=== PATIENT | male | born 1950 | race Asian ===

== ENCOUNTER 2024-07-07 11:56 | Inpatient (IN) | payer MEDICAID, OTHER ==
[~2024-07-07] VITALS: Ht 170.2 cm; Wt 77.0 kg
--- NOTE | 2024-07-07 12:06 | ED.PDOC ---
GI ASSESSMENT HPI Comments 74 Y M LUIS ALBERTO, presents to the ED with CC of abdominal pain. Per EMS, patient has been experiencing abdominal pain x4days with constipation [id number]; with associated symptoms of nausea and vomiting. Patient was given 1g of Tylenol and 4g of Zofran in route to ED with no relief. Patient smokes tobacco, denies ETOH consumption, or illicit drug use. Patient denies fever, chills, body aches, or headache. Chief Complaint: Abdominal Pain Time Seen by MD: 11:50 Reviewed Notes: Nurses Notes, Tennis [employer] Instructor Notes, Medications, Allergies Allergies: Coded Allergies: NO KNOWN ALLERGIES (Unverified , 07/07/24) Information Source: Patient, Emergency Med Personnel Mode of Arrival: EMS Duration: Since onset Prehospital treatment: Other (TYLENOL, ZOFRAN) Quality: Cramping Vomitus: Watery Stool: Watery Severity: Mild Recent Hx of: None Pain Location: Suprapubic Modifying Factors: Nothing Associated sign and symptoms: Nausea, Vomiting Past Medical History PAST MEDICAL HISTORY: Denies Surgical History: Denies all surgeries Family History Family History: Unknown Social History Smoker: Cigarettes Alcohol: Denies ETOH Use Drugs: Denies Drug Use Lives In: Home Constitutional: denies: chills, diaphoresis, fatigue, fever, malaise, sweats, weakness, others EENTM: denies: blurred vision, double vision, ear bleeding, ear discharge, ear drainage, ear pain, ear ringing, eye pain, eye redness, hearing loss, mouth pain, mouth swelling, nasal discharge, nose bleeding, nose congestion, nose pain, photophobia, tearing, throat pain, throat swelling, voice changes, others Respiratory: denies: cough, hemoptysis, orthopnea, SOB at rest, shortness of breath, SOB with excertion, stridor, wheezing, others Cardiovascular: denies: chest pain, dizzy spells, diaphoresis, Dyspnea on exertion, edema, irregular heart beat, left arm pain, lightheadedness, palpitations, PND, syncope, others Gastrointestinal: reports: abdominal pain, constipated, nausea, vomiting; denies: abdomen distended, blood streaked bowels, diarrhea, dysphagia, difficulty swallowing, hematemesis, melena, poor appetite, poor fluid intake, rectal bleeding, rectal pain, others Genitourinary: denies: burning, dysuria, flank pain, frequency, hematuria, incontinence, penile discharge, penile sore, pain, testicle pain, testicle swelling, urgency, others Neurological: denies: dizziness, fainting, headache, left sided numbness, left sided weakness, numbness, paresthesia, pre-existing deficit, right sided numbness, right sided weakness, seizure, speech problems, tingling, tremors, weakness, others Musculoskeletal: denies: back pain, gout, joint pain, joint swelling, muscle pain, muscle stiffness, neck pain, others Integumetry: denies: bruises, change in color, change in hair/nails, dryness, laceration, lesions, lumps, rash, wounds, others Allergic/Immunocompromised: denies: Difficulty Healing, Frequent Infections, Hives, Itching, others Hematologic/Lymphatic: denies: anemia, blood clots, easy bleeding, easy bruising, swollen glands, others Endocrine: denies: excessive hunger, excessive sweating, excessive thirst, excessive urination, flushing, intolerance to cold, intolerance to heat, unexplained weight gain, unexplained weight loss, others Psychiatric: denies: anxiety, bipolar disorder, depression, hopeless, panic disorder, schizophrenia, sleepless, suicidal, others All Other Systems: Reviewed and Negative Physical Exam General Appearance: Moderate Distress HEENT: Normal ENT Inspection, Pharynx Normal, TMs Normal Neck: Full Range of Motion, Non-Tender, Normal, Normal Inspection Respiratory: Chest Non-Tender, Lungs Clear, No Accessory Muscle Use, No Respiratory Distress, Normal Breath Sounds Cardiovascular: No Edema, No JVD, No Murmur, No Gallop, Normal Peripheral Pulses, Regular Rate/Rhythm Breast Exam: Deferred Gastrointestinal: Epigastric, No Organomegaly, Normal Bowel Sounds, Soft, Tenderness, Other (The patient has a pulsatile mass) Genitalia: Deferred Pelvic: Deferred Rectal: Deferred Extremities: No calf tenderness, Normal capillary refill, No pedal edema Musculoskeletal : Apperance: Normal Neurologic: Alert, nibbler operator II-XII nml as Tested, No Motor Deficits, Normal Affect, Normal Mood, No Sensory Deficits Cerebellar Function: Normal Reflexes: Normal Skin: Dry, Normal Color, Warm Lymphatic: No Adenopathy EKG EKG : Pulse Rate (adult): 76 Richardson: Normal Cardiac Rhythm: NSR ST: Nonsp Was a procedure done? Was a procedure done?: No GI differential Dx Differential Diagnosis: Bowel Obstruction, Constipation, Gastritis/PUD, Gastroenteritis, Electrolyte Imbalance, Food Poisoning, Bacterial, Viral X-Ray, Labs, Meds, VS Vital Signs Date Time Temp Pulse Resp B/P (MAP) Pulse Ox O2 Delivery O2 Flow Rate FiO2 07/07/24 15:30 76 17 162/98 (119) 95 07/07/24 15:29 83 18 166/83 07/07/24 13:48 88 18 164/96 07/07/24 13:34 162/98 (119) 07/07/24 13:20 89 20 166/113 07/07/24 13:16 98.0 13 166/113 (130) 97 98.0 07/07/24 12:10 89 16 167/108 (127) 98 07/07/24 12:08 92 07/07/24 11:59 98.1 88 18 183/105 (131) 98 Lab Test 07/07/24 15:00 07/07/24 12:19 Range/Units Urine Color Yellow Yellow Urine Clarity Clear Clear Urine pH 6.0 5.0-9.0 Urine Specific [place] 1.028 1.001-1.035 Urine Protein 1+ H Negative Urine Ketones 2+ H Negative Urine Blood 2+ H Negative /uL Urine Nitrite Negative Negative Urine Bilirubin Negative Negative Urine Urobilinogen 4 H Negative mg/dL Urine Leukocyte Esterase Negative Negative /uL Urine RBC 11 0 - 3 /hpf Urine WBC 1 0 - 3 /hpf Urine Squamous Epithelial Cells Few <5 /hpf Urine Bacteria None seen None Seen /hpf Urine Mucus Few None Seen Urine Glucose 2+ H Normal mg/dL White Blood Count 12.4 H 4.4-10.8 10^3/uL Red Blood Count 4.79 4.5-5.90 10^6/uL Hemoglobin 14.6 13.5-17.5 g/dL Hematocrit 43.7 41.0-53.0 % Mean Corpuscular Volume 91.4 80.0-100.0 fL Mean Corpuscular Hemoglobin 30.5 28.0-32.0 pg Mean Corpuscular Hemoglobin Concent 33.4 32.0-36.0 g/dL Red Cell Distribution Width 14.7 H 11.8-14.3 % Platelet Count 270 140-450 10^3/uL Mean Platelet Volume 8.9 6.9-10.8 fL Neutrophils (%) (Auto) 89.8 H 37.0-80.0 % Lymphocytes (%) (Auto) 6.5 L 10.0-50.0 % Monocytes (%) (Auto) 3.4 0.0-12.0 % Eosinophils (%) (Auto) 0.0 0.0-7.0 % Basophils (%) (Auto) 0.3 0.0-2.0 % Neutrophils # (Auto) 11.1 H 1.6-8.6 10 ^3/uL Lymphocytes # (Auto) 0.8 0.4-5.4 10 ^3/uL Monocytes # (Auto) 0.4 0-1.3 10 ^3/uL Eosinophils # (Auto) 0 0-0.8 10 ^3/uL Basophils # (Auto) 0 0-0.2 10 ^3/uL Nucleated Red Blood Cells 0.1 % Prothrombin Time 10.6 9.3-11.8 sec Prothrombin Time INR 1.00 0.9-1.15 Activated Partial Thromboplast Time 28.9 24.5-34.5 SEC Sodium Level 134 L 136-145 mmol/L Potassium Level 3.9 3.5-5.1 mmol/L Chloride Level 102 98-107 mmol/L Carbon Dioxide Level 25 20-31 mmol/L Anion Gap 7 5-15 Blood Urea Nitrogen 13 9-23 mg/dL Creatinine 1.11 0.700-1.30 mg/dL Glomerular Filtration Rate Calc 71 >90 mL/min BUN/Creatinine Ratio 11.7 10.0-20.0 Serum Glucose 165 H 74-106 mg/dL Calcium Level 9.3 8.7-10.4 mg/dL Total Bilirubin 1.0 0.2-1.0 mg/dL Aspartate Amino Transferase (AST) 15 13-40 U/L Alanine Aminotransferase (ALT) < 9 7-40 U/L Alkaline Phosphatase 91 46-116 U/L Total Protein 7.5 5.7-8.2 g/dL Albumin 4.1 3.2-4.8 g/dL Current Medications Medications (Trade) Dose Ordered Sig/David Route Start Time Stop Time Status Last Admin Morphine Sulfate 4 mg ONCE ONCE IV 07/07/24 13:15 07/07/24 13:16 DC 07/07/24 13:20 Ondansetron HCl (Zofran) 4 mg ONCE ONCE IV 07/07/24 13:15 07/07/24 13:16 DC 07/07/24 13:20 Hydromorphone HCl (Dilaudid Injection) 0.5 mg ONCE ONCE IV 07/07/24 15:15 07/07/24 15:16 DC 07/07/24 15:29 Ondansetron HCl (Zofran) 4 mg ONCE ONCE IV 07/07/24 15:15 07/07/24 15:16 DC 07/07/24 15:[address]: T Dose: CTDI volume is 5.82 mGy. Dose-length product is 326.08 mGy*cm Comparison: None FINDINGS: Evaluation of the abdomen and pelvis is limited without intravenous contrast. There is marked aneurysmal dilatation of the infrarenal abdominal aorta measuring 7.0 x 7.7 cm in maximum diameter. The IVC appears within normal limits. 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 The liver, gallbladder, pancreas, kidneys, adrenal glands, and spleen appear within normal limits. There is no free fluid or free air. The stomach grossly appears unremarkable. The small and large bowel loops demonstrate normal caliber. There is mild prostatomegaly. Bladder appears within normal limits for the degree of distention.. There is no gross evidence of a pelvic mass. There is no free fluid collection. Lung bases are clear. There is no acute osseous abnormality. IMPRESSION: 1. Marked aneurysmal dilatation of the infrarenal abdominal aorta measuring 7.0 x 7.7 cm maximum diameter. Surgical consultation and further evaluation with CT angiography is recommended. 2. Mild prostatomegaly. HS:Y ATED BY: GARCÍA WYMAN MD DICTATED DATE/TIME: 07/07/241239 SIGNED BY: GARCÍA WYMAN MD SIGNED DATE/TIME: 07/07/241239 CC: Because of the findings on the CT scan we did contact the vascular surgeon and he will be consulting on this patient. The patient will be evaluated by him. The patient was being admitted to the hospitalist We have given the patient morphine for the pain as well as Dilaudid for the pain. The patient has been typed and screened. The white blood cell count is elevated at 12.4 The rest of the CBC and chemistry panel are within normal limits At this time, the patient was being admitted. The urine test is negative for infection We are getting an per diem interpreter for the patient who speaks Syriac. The vascular surgeon is Dr. Refugio Robledo Images Reviewed?: Images reviewed and evaluated by me Time of 1ST Reevaluation: 12:20 Reevaluation 1ST: Unchanged Patient Education/Counseling: Diagnosis, Treatment, Prognosis Family Education/Counseling: No Family Present Departure 1 Departure Time of Disposition: 16:02 Impression: Primary Impression: Intractable abdominal pain Additional Impression: Infrarenal abdominal aortic aneurysm (AAA) without rupture Disposition: 09 ADMITTED INPATIENT Admit to: Tele Condition: Fair Critical Care Note Critical Care Time?: Yes (45 min-critical care time only) Stability Stability form required: Yes Unstable for transfer: Telemetry monitoring (Telemetry monitoring required), ED Physician Assesment (Clinical assesment) Heart Score Heart Score: Heart Score Response (Comments) Value History N/A 0 EKG N/A 0 Age N/A 0 Risk Factors N/A 0 Troponin N/A 0 Total 0 I personally scribed for KASH FALCON MD ([email or web address]) on 07/07/24 at 12:06. Electronically submitted by Evelia Santos ([email or web address]). I personally scribed for KASH FALCON MD ([email or web address]) on 07/07/24 at 13:19. Electronically submitted by Evelia Santos ([email or web address]). KASH FALCON MD Jul 07, 2024 12:06
--- NOTE | 2024-07-07 12:42 | DVH ---
CT ABDOMEN AND PELVIS WITHOUT CONTRAST CLINICAL HISTORY: PAIN TECHNIQUE: Multiple contiguous axial images of the abdomen and pelvis without intravenous contrast. The images were reformatted degenerate coronal and sagittal reconstructions. All CT scans at this medical facility are performed using dose modulation techniques as appropriate t o a performed exam including the following:Automated exposure control was utilized; adjustment of the MA and/or KV according to patient size; and use of iterative reconstruction technique. Radiation Dose Information: CT Dose: CTDI volume is 5.82 mGy. Dose-length product is 326.08 mGy*cm Comparison: None FINDINGS: Evaluation of the abdomen and pelvis is limited without intravenous contrast. There is marked aneurysmal dilatation of the infrarenal abdominal aorta measuring 7.0 x 7.7 cm in max imum diameter. The IVC appears within normal limits. There is also aneurysmal dilatation of the proxi mal common iliac arteries. The liver, gallbladder, pancreas, kidneys, adrenal glands, and spleen appear within normal limits. There is no free fluid or free air. The stomach grossly appears unremarkable. The small and large bowel loops demonstrate normal caliber . There is mild prostatomegaly. Bladder appears within normal limits for the degree of distention.. Th ere is no gross evidence of a pelvic mass. There is no free fluid collection. Lung bases are clear. There is no acute osseous abnormality. IMPRESSION: 1. Marked aneurysmal dilatation of the infrarenal abdominal aorta measuring 7.0 x 7.7 cm maximum diam eter. Surgical consultation and further evaluation with CT angiography is recommended. 2. Mild prostatomegaly. HS:Y
[2024-07-07 12:43] LABS: Basophils # (auto) 0 10 ^3/uL (0-0.2); Basophils % (auto) 0.3 % (0.0-2.0); Eosinophils # (auto) 0 10 ^3/uL (0-0.8); Hematocrit 43.7 % (41.0-53.0); Hemoglobin 14.6 g/dL (13.5-17.5); Lymphocytes # (auto) 0.8 10 ^3/uL (0.4-5.4); Lymphocytes % (auto) 6.5 % (10.0-50.0); Mean Corpuscular Hemoglobin 30.5 pg (28.0-32.0); Mean Corpuscular Hgb Conc. 33.4 g/dL (32.0-36.0); Mean Corpuscular Volume 91.4 fL (80.0-100.0); Monocytes # (auto) 0.4 10 ^3/uL (0-1.3); Monocytes % (auto) 3.4 % (0.0-12.0); Neutrophils # (auto) 11.1 10 ^3/uL (1.6-8.6); Neutrophils % (auto) 89.8 % (37.0-80.0); Nucleated Red Blood Cells % 0.1 %; Platelet Count (auto) 270 10^3/uL (140-450); Red Blood Cells 4.79 10^6/uL (4.5-5.90); Red Cell Distribution Width 14.7 % (11.8-14.3); White Blood Cell 12.4 10^3/uL (4.4-10.8)
[2024-07-07 13:01] LABS: Alkaline Phosphatase 91 U/L (46-116); Anion Gap 7 (5-15); Aspartate Aminotransferase 15 U/L (13-40); BUN/Creatinine Ratio 11.7 (10.0-20.0); Blood Urea Nitrogen 13 mg/dL (9-23); Calcium 9.3 mg/dL (8.7-10.4); Carbon Dioxide 25 mmol/L (20-31); Chloride 102 mmol/L (98-107); Potassium 3.9 mmol/L (3.5-5.1)
[2024-07-07 13:02] LABS: Albumin 4.1 g/dL (3.2-4.8); Total Protein 7.5 g/dL (5.7-8.2)
[2024-07-07 13:08] LABS: Alanine Aminotransferase < 9 U/L (7-40); Glucose 165 mg/dL (74-106); Sodium 134 mmol/L (136-145)
[2024-07-07] MEDS: MORPHINE SULFATE 4 MG/ML SYR/VIAL IV ONE (13:20)
[2024-07-07] MEDS: ONDANSETRON HCL 4 MG/2 ML VIAL IV ONE ×2 (13:20→15:30)
[2024-07-07 14:18] LABS: Partial Thromboplastin Time 28.9 SEC (24.5-34.5); Prothrombin Time 10.6 sec (9.3-11.8)
[2024-07-07 15:15] LABS: Urine Bacteria None Seen /hpf (None Seen)
[2024-07-07] MEDS: HYDROmorphone HCL 2 MG/ML VL/or syr IV ONE ×2 (15:29→20:17)
[2024-07-07 15:45] LABS: Urine Blood 2+ /uL (Negative); Urine Clarity Clear (Clear); Urine Color Yellow (Yellow); Urine Mucus FEW (None Seen); Urine Protein, UAD 1+ (Negative); Urine Specific Gravity 1.028 (1.001-1.035); Urine Squamous Epithelial Cell FEW /hpf (<5); Urine Urobilinogen 4 mg/dL (Negative); Urine WBC 1 /hpf (0 - 3)
[2024-07-07] MEDS: LORazepam 2MG/ML-1ML VIAL IV ONE (20:19)
[2024-07-07] MEDS ORDERED: LORazepam 2MG/ML-1ML VIAL IV PRN (21:00)
[2024-07-07] MEDS ORDERED: hydrALAZINE HCL 20 MG/ML VL IV PRN (21:00)
[2024-07-07] MEDS ORDERED: ONDANSETRON HCL 4 MG/2 ML VIAL IV PRN (21:00)
[2024-07-07] MEDS ORDERED: DOCUSATE SOD 100 MG CAP PO PRN (21:00)
[2024-07-07] MEDS ORDERED: HYDROcodone-ACET 5/325MG TAB PO PRN (21:00)
[2024-07-07] MEDS ORDERED: ACETAMINOPHEN 325 MG TAB PO PRN (21:00)
[2024-07-07] MEDS: cefTRIAXone 1GM/50ML D5W 50 ML IV ONE (21:32)
[2024-07-07] MEDS: SODIUM CHLORIDE 0.9% 1,000 ML IV SCH (21:32)
--- NOTE | 2024-07-07 21:52 | DVHCONRES ---
Date Seen: Jul 07, 2024 Resident Creating Document: DANIELLE FLORES Jr., MD Referring Physician Antonette Reason for Consultation AAA History of Present Illness 74 Y M BIBA, presents to the ED with CC of abdominal pain. Per EMS, patient has been experiencing abdominal pain x4days with constipation [id number]; with associated symptoms of nausea and vomiting. Patient was given 1g of Tylenol and 4g of Zofran in route to ED with no relief. Patient smokes tobacco, denies ETOH consumption, or illicit drug use. Patient denies fever, chills, body aches, or headache. Patient denies any abdominal pain but recently received 0.5 mg of Dilaudid prior to evaluation. Patient states he did have some nausea over the last week and complaining of abdominal discomfort and occasional back pain. Denies any claudication or rest pain symptoms. Past Medical History Negative Past Surgical History Negative Family History Noncontributory Social History Nonsmoker nondrinker Allergies: Coded Allergies: NO KNOWN ALLERGIES (Unverified , 07/07/24) Current Medications Current Medications Medications (Trade) Dose Ordered Sig/David Route PRN Reason Start Time Stop Time Status Last Admin Ceftriaxone Sodium 50 ml @ 100 mls/hr DAILY@09 IV 07/08/24 09:00 Hydralazine HCl (Apresoline Injection) 10 mg Q6HP PRN IV SBP>150 07/07/24 21:00 Sodium Chloride 1,000 ml @ 60 mls/hr [id number] IV 07/07/24 21:00 07/07/24 21:32 Acetaminophen/ Hydrocodone Bitart ([place] 5/325MG Tab) 1 tab Q4HP PRN PO MODERATE PAIN (4-6 PAIN SCALE) 07/07/24 21:00 Ondansetron HCl (Zofran) 4 mg Q4HP PRN IV NAUSEA / VOMITING 07/07/24 21:00 Docusate Sodium (Colace Capsule) 100 mg BIDPRN PRN PO FOR CONSTIPATION 07/07/24 21:00 Acetaminophen (Tylenol Tablet) 650 mg Q6HP PRN PO PAIN SCALE 1-3 OR TEMP>100.4 07/07/24 21:00 Morphine Sulfate 2 mg Q4HPRN PRN IV SEVERE PAIN (7-10 PAIN SCALE) 07/07/24 21:00 Lorazepam (Ativan Inj) 0.5 mg Q8HP PRN IV ANXIETY 07/07/24 21:00 Review of Systems All systems reviewed otherwise negative other than what is in the HPI. Vital Signs Vital Signs Date Time Temp Pulse Resp B/P (MAP) Pulse Ox O2 Delivery O2 Flow Rate FiO2 07/07/24 20:17 87 14 178/102 07/07/24 20:07 98.6 95 98.6 07/07/24 19:30 Room Air* 0 21 Physical Exam Head eyes ears nose and throat exam eyes are nonicteric conjunctiva is pink neck was supple no JVD no lymphadenopathy no carotid bruits lungs are clear to auscultation heart was regular rate and rhythm abdomen is soft nontender. Pulsatile abdominal mass noted. No CVA tenderness palpable femoral and pedal pulses bilaterally. No edema. Labs/Diagnostic Data Labs Test 07/07/24 15:00 07/07/24 12:19 Range/Units Urine Color Yellow Yellow Urine Clarity Clear Clear Urine pH 6.0 5.0-9.0 Urine Specific [place] 1.028 1.001-1.035 Urine Protein 1+ H Negative Urine Ketones 2+ H Negative Urine Blood 2+ H Negative /uL Urine Nitrite Negative Negative Urine Bilirubin Negative Negative Urine Urobilinogen 4 H Negative mg/dL Urine Leukocyte Esterase Negative Negative /uL Urine RBC 11 0 - 3 /hpf Urine WBC 1 0 - 3 /hpf Urine Squamous Epithelial Cells Few <5 /hpf Urine Bacteria None seen None Seen /hpf Urine Mucus Few None Seen Urine Glucose 2+ H Normal mg/dL White Blood Count 12.4 H 4.4-10.8 10^3/uL Red Blood Count 4.79 4.5-5.90 10^6/uL Hemoglobin 14.6 13.5-17.5 g/dL Hematocrit 43.7 41.0-53.0 % Mean Corpuscular Volume 91.4 80.0-100.0 fL Mean Corpuscular Hemoglobin 30.5 28.0-32.0 pg Mean Corpuscular Hemoglobin Concent 33.4 32.0-36.0 g/dL Red Cell Distribution Width 14.7 H 11.8-14.3 % Platelet Count 270 140-450 10^3/uL Mean Platelet Volume 8.9 6.9-10.8 fL Neutrophils (%) (Auto) 89.8 H 37.0-80.0 % Lymphocytes (%) (Auto) 6.5 L 10.0-50.0 % Monocytes (%) (Auto) 3.4 0.0-12.0 % Eosinophils (%) (Auto) 0.0 0.0-7.0 % Basophils (%) (Auto) 0.3 0.0-2.0 % Neutrophils # (Auto) 11.1 H 1.6-8.6 10 ^3/uL Lymphocytes # (Auto) 0.8 0.4-5.4 10 ^3/uL Monocytes # (Auto) 0.4 0-1.3 10 ^3/uL Eosinophils # (Auto) 0 0-0.8 10 ^3/uL Basophils # (Auto) 0 0-0.2 10 ^3/uL Nucleated Red Blood Cells 0.1 % Prothrombin Time 10.6 9.3-11.8 sec Prothrombin Time INR 1.00 0.9-1.15 Activated Partial Thromboplast Time 28.9 24.5-34.5 SEC Sodium Level 134 L 136-145 mmol/L Potassium Level 3.9 3.5-5.1 mmol/L Chloride Level 102 98-107 mmol/L Carbon Dioxide Level 25 20-31 mmol/L Anion Gap 7 5-15 Blood Urea Nitrogen 13 9-23 mg/dL Creatinine 1.11 0.700-1.30 mg/dL Glomerular Filtration Rate Calc 71 >90 mL/min BUN/Creatinine Ratio 11.7 10.0-20.0 Serum Glucose 165 H 74-106 mg/dL Hemoglobin A1c 5.5 <5.7 % A1C Calcium Level 9.3 8.7-10.4 mg/dL Total Bilirubin 1.0 0.2-1.0 mg/dL Aspartate Amino Transferase (AST) 15 13-40 U/L Alanine Aminotransferase (ALT) < 9 7-40 U/L Alkaline Phosphatase 91 46-116 U/L Total Protein 7.5 5.7-8.2 g/dL Albumin 4.1 3.2-4.8 g/dL CT ABDOMEN AND PELVIS WITHOUT CONTRAST CLINICAL HISTORY: PAIN TECHNIQUE: Multiple contiguous axial images of the abdomen and pelvis without intravenous contrast. The images were reformatted degenerate coronal and sagittal reconstructions. All CT scans at this medical facility are performed using dose modulation techniques as appropriate to a performed exam including the following:Automated exposure control was utilized; adjustment of the MA and/or KV according to patient size; and use of iterative reconstruction technique. Radiation Dose Information: CT Dose: CTDI volume is 5.82 mGy. Dose-length product is 326.08 mGy*cm Comparison: None FINDINGS: Evaluation of the abdomen and pelvis is limited without intravenous contrast. There is marked aneurysmal dilatation of the infrarenal abdominal aorta measuring 7.0 x 7.7 cm in maximum diameter. The IVC appears within normal limits. 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 The liver, gallbladder, pancreas, kidneys, adrenal glands, and spleen appear within normal limits. There is no free fluid or free air. The stomach grossly appears unremarkable. The small and large bowel loops demonstrate normal caliber. There is mild prostatomegaly. Bladder appears within normal limits for the degree of distention.. There is no gross evidence of a pelvic mass. There is no free fluid collection. Lung bases are clear. There is no acute osseous abnormality. IMPRESSION: 1. Marked aneurysmal dilatation of the infrarenal abdominal aorta measuring 7.0 x 7.7 cm maximum diameter. Surgical consultation and further evaluation with CT angiography is recommended. 2. Mild prostatomegaly. Assessment 7 x7.7 cm abdominal aortic aneurysm. We will require a CT angiogram of the abdomen and pelvis further evaluate location extent of aneurysm. We will need cardiac clearance. We will require surgical repair abdominal aortic aneurysm. Patient was made aware of this plan. Plan/Recommendation 7 x7.7 cm abdominal aortic aneurysm. We will require a CT angiogram of the abdomen and pelvis further evaluate location extent of aneurysm. We will need cardiac clearance. We will require surgical repair abdominal aortic aneurysm. Patient was made aware of this plan. Plan discussed with: Patient DANIELLE FLORES Jr., MD Jul 07, 2024 21:52
[2024-07-07] MEDS: IOHEXOL 350 MG/ML 100ML IJ ONE (22:26)
--- NOTE | 2024-07-07 22:57 | DVHHP2 ---
History of Present Illness Reason for Visit: Intractable abdominal pain History of Present Illness The patient is a 74-year-old male who denies past medical history presented to [facility] ED with complaint of acute abdominal pain. Patient reports he has been experiencing abdominal pain a proximally four days with constipation times 10 days associated nausea, vomiting, getting worse today that prompted this visit. Patient was seen and evaluated in the ED laboratory data shows WBC 12.4, platelets 270, sodium 134, potassium 3.9, BUN 13, creatinine 1.11, GFR 71, glucose 165, blood pressure 178/ 102 trending down to 149/90, heart rate 87, temperature 98.6 F, O2 saturation 96% room air. Abdomen/pelvis CT revealing marked aneurysmal dilatation of the infrarenal abdominal aorta measuring 7.0 x 7.7 cm maximum diameter; CT angio aorta revealing prominent infrarenal abdominal aortic aneurysm measuring 7.6 by 7 cm and was 13 cm long, right common iliac artery measures 2.4 cm, left common iliac artery measures 1.8 cm. Patient was given IV morphine sulfate 4 mg x 1, please see medication orders section in the computer. On my assessment, patient denies chest pain, no headache, no dizziness, no diaphoresis, no shortness of breath, no diarrhea, no nausea, no vomiting, no fever, no chills. Patient was admitted for further evaluation and medical management. Past Medical History Denies past medical history Past Surgical History Denies all surgeries Family History Reviewed, noncontributory to the management of this case. Past Social History The patient lives at home, denies smoking, alcohol or illicit drugs abuse. Review of Systems Constitutional: Yes: Weakness; No: Fever, Chills, Sweats, Malaise, Other Eyes: No: Pain, Vision change, Conjunctivae inflammation, Eyelid inflammation, Other, Redness ENT: No: Ear pain, Ear discharge, Nose pain, Nose discharge, Nose congestion, Mouth pain, Mouth swelling, Throat pain, Throat swelling, Other Respiratory: No: Cough, Dry, Shortness of breath, SOB with excertion, Wheezing, Hemoptysis, Pleuritic Pain, Sputum, Wheezing, Other Cardiovascular: No: Chest Pain, Palpitations, Orthopnea, Paroxysmal Noc. Dyspnea, Edema, Lt Headedness, Other Gastrointestinal: Nausea, Vomiting, Abdominal Pain, Constipation; No: Diarrhea, Melena, Hematochezia, Other Genitourinary: No Dysuria, No Frequency, No Incontinence, No Hematuria, No Retention, No Other Musculoskeletal: No: other, neck pain, shoulder pain, arm pain, back pain, hand pain, leg pain, foot pain Skin: No: Rash, Lesions, Jaundice, Bruising, Other Neurological: No: Weakness, Numbness, Incoordination, Change in speech, Confusion, Seizures, Other Allergies: Coded Allergies: NO KNOWN ALLERGIES (Unverified , 07/07/24) Medications Current Medications Medications Dose Ordered Sig/David Route Start Time Stop Time Status Last Admin Dose Admin Ceftriaxone Sodium 50 ml @ 100 mls/hr DAILY@09 IV 07/08/24 09:00 Hydralazine HCl 10 mg Q6HP PRN IV 07/07/24 21:00 Sodium Chloride 1,000 ml @ 60 mls/hr [id number] IV 07/07/24 21:00 07/07/24 21:32 60 MLS/HR Acetaminophen/ Hydrocodone Bitart 1 tab Q4HP PRN PO 07/07/24 21:00 Ondansetron HCl 4 mg Q4HP PRN IV 07/07/24 21:00 Docusate Sodium 100 mg BIDPRN PRN PO 07/07/24 21:00 Acetaminophen 650 mg Q6HP PRN PO 07/07/24 21:00 Morphine Sulfate 2 mg Q4HPRN PRN IV 07/07/24 21:00 Lorazepam 0.5 mg Q8HP PRN IV 07/07/24 21:00 Exam Vital Signs Vital Signs Date Time Temp Pulse Resp B/P (MAP) Pulse Ox O2 Delivery O2 Flow Rate FiO2 07/07/24 22:00 84 20 148/76 (100) 96 07/07/24 20:07 98.6 98.6 07/07/24 19:30 Room Air* 0 21 General Appearance: Alert, Oriented X3, Cooperative, No acute distress HEENT: Atraumatic, PERRLA, EOMI, Mucous membr. moist/pink Respiratory: Clear to auscultation, Normal air movement Cardiovascular: Regular rate, Normal S1, Normal S2, No murmurs Abdominal: Normal bowel sounds, Soft, No hepatospenomegaly, No masses, Other (Reports tenderness) Extremities: No clubbing, No cyanosis, No edema, Normal pulses, No tenderness/ swelling Skin: No rashes, No breakdown, No significant lesion Neuro: Normal speech, Normal tone, Sensation intact, Cranial nerves 3-12 NL, Reflexes 2+, Other (Generalized weakness) Psych/Mental Status: Mental status NL, Mood NL Labs/Xrays Labs Test 07/07/24 15:00 07/07/24 12:19 Range/Units Urine Color Yellow Yellow Urine Clarity Clear Clear Urine pH 6.0 5.0-9.0 Urine Specific [place] 1.028 1.001-1.035 Urine Protein 1+ H Negative Urine Ketones 2+ H Negative Urine Blood 2+ H Negative /uL Urine Nitrite Negative Negative Urine Bilirubin Negative Negative Urine Urobilinogen 4 H Negative mg/dL Urine Leukocyte Esterase Negative Negative /uL Urine RBC 11 0 - 3 /hpf Urine WBC 1 0 - 3 /hpf Urine Squamous Epithelial Cells Few <5 /hpf Urine Bacteria None seen None Seen /hpf Urine Mucus Few None Seen Urine Glucose 2+ H Normal mg/dL White Blood Count 12.4 H 4.4-10.8 10^3/uL Red Blood Count 4.79 4.5-5.90 10^6/uL Hemoglobin 14.6 13.5-17.5 g/dL Hematocrit 43.7 41.0-53.0 % Mean Corpuscular Volume 91.4 80.0-100.0 fL Mean Corpuscular Hemoglobin 30.5 28.0-32.0 pg Mean Corpuscular Hemoglobin Concent 33.4 32.0-36.0 g/dL Red Cell Distribution Width 14.7 H 11.8-14.3 % Platelet Count 270 140-450 10^3/uL Mean Platelet Volume 8.9 6.9-10.8 fL Neutrophils (%) (Auto) 89.8 H 37.0-80.0 % Lymphocytes (%) (Auto) 6.5 L 10.0-50.0 % Monocytes (%) (Auto) 3.4 0.0-12.0 % Eosinophils (%) (Auto) 0.0 0.0-7.0 % Basophils (%) (Auto) 0.3 0.0-2.0 % Neutrophils # (Auto) 11.1 H 1.6-8.6 10 ^3/uL Lymphocytes # (Auto) 0.8 0.4-5.4 10 ^3/uL Monocytes # (Auto) 0.4 0-1.3 10 ^3/uL Eosinophils # (Auto) 0 0-0.8 10 ^3/uL Basophils # (Auto) 0 0-0.2 10 ^3/uL Nucleated Red Blood Cells 0.1 % Prothrombin Time 10.6 9.3-11.8 sec Prothrombin Time INR 1.00 0.9-1.15 Activated Partial Thromboplast Time 28.9 24.5-34.5 SEC Sodium Level 134 L 136-145 mmol/L Potassium Level 3.9 3.5-5.1 mmol/L Chloride Level 102 98-107 mmol/L Carbon Dioxide Level 25 20-31 mmol/L Anion Gap 7 5-15 Blood Urea Nitrogen 13 9-23 mg/dL Creatinine 1.11 0.700-1.30 mg/dL Glomerular Filtration Rate Calc 71 >90 mL/min BUN/Creatinine Ratio 11.7 10.0-20.0 Serum Glucose 165 H 74-106 mg/dL Hemoglobin A1c 5.5 <5.7 % A1C Calcium Level 9.3 8.7-10.4 mg/dL Total Bilirubin 1.0 0.2-1.0 mg/dL Aspartate Amino Transferase (AST) 15 13-40 U/L Alanine Aminotransferase (ALT) < 9 7-40 U/L Alkaline Phosphatase 91 46-116 U/L Total Protein 7.5 5.7-8.2 g/dL Albumin 4.1 3.2-4.8 g/dL PATIENT: FRANCISCO JENSEN ACCT: [id number] UNIT: [id number] : 1950 LOC: ER ROOM / BED: / AGE / SEX: 74 / M ADM STATUS: REG ER SERVICE 1209 ORDERING PHYSICIAN: KASH FALCON MD PROCEDURE(s): ABPL - CT AB PEL WO CON-NO ORAL OR IV REASON: PAIN ORDER NUMBER(s): [id number], ACCESSION NUMBER(s): [id number] CT ABDOMEN AND PELVIS WITHOUT CONTRAST CLINICAL HISTORY: PAIN TECHNIQUE: Multiple contiguous axial images of the abdomen and pelvis without intravenous contrast. The images were reformatted degenerate coronal and sagittal reconstructions. All CT scans at this medical facility are performed using dose modulation techniques as appropriate to a performed exam including the following:Automated exposure control was utilized; adjustment of the MA and/or KV according to patient size; and use of iterative reconstruction technique. Radiation Dose Information: CT Dose: CTDI volume is 5.82 mGy. Dose-length product is 326.08 mGy*cm Comparison: None FINDINGS: Evaluation of the abdomen and pelvis is limited without intravenous contrast. There is marked aneurysmal dilatation of the infrarenal abdominal aorta octavio uring 7.0 x 7.7 cm in maximum diameter. The IVC appears within normal limits. 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 The liver, gallbladder, pancreas, kidneys, adrenal glands, and spleen appear within normal limits. There is no free fluid or free air. The stomach grossly appears unremarkable. The small and large bowel loops demonstrate normal caliber. There is mild prostatomegaly. Bladder appears within normal limits for the degree of distention. There is no gross evidence of a pelvic mass. There is no free fluid collection. Lung bases are clear. There is no acute osseous abnormality. IMPRESSION: 1. Marked aneurysmal dilatation of the infrarenal abdominal aorta measuring 7.0 x 7.7 cm maximum diameter. Surgical consultation and further evaluation with CT angiography is recommended. 2. Mild prostatomegaly. ORDERING PHYSICIAN: DANIELLE FLORES Jr., MD PROCEDURE(s): CTAAA - CT ANGIO ABD AORTA W RUN OFF REASON: abd pain with know AAA 7x7.7 cm ORDER NUMBER(s): [id number], ACCESSION NUMBER(s): [id number] Exam: CT CT ANGIO ABD AORTA W RUN OFF History: abd pain with know AAA 7x7.7 cm Comparison Study: None available at time of dictation. TECHNIQUE: Multidetector CT of the abdomen was performed from lung bases to pubic symphysis. Imaging was performed without IV contrast. Axial, coronal and sagittal multiplanar reformats were obtained from the axial data set by the technologist. Radiation Dose Information: CT Dose: CTDI volume is 57.75 mGy. Dose-length product is 1969.29 mGy*cm FINDINGS: Evaluation of solid organs is limited due to lack of intravenous contrast use. Findings: Lung Bases: No acute or significant lung base finding. Normal heart size. No pleural or pericardial effusion. Liver: The liver is normal in size. No focal lesions. Gallbladder and Biliary Tree: Unremarkable Spleen: Unremarkable Pancreas: The pancreas is grossly normal in appearance. Adrenal Glands: Unremarkable Kidneys: Kidneys are grossly normal without calculi or hydronephrosis. Bladder: Grossly unremarkable for degree of distention. Bowel: The stomach is grossly normal in appearance. Small bowel and colon are normal in caliber and distribution. The appendix is not visualized; however, no secondary findings of acute appendicitis identified. Ascites: Absent Lymphadenopathy: No mesenteric, retroperitoneal or periportal lymphadenopathy. Abdominal Wall and Mesentery: Unremarkable. Vasculature: The abdominal aorta is aneurysmally dilated from the infrarenal arteries to the aortic bifurcation and measures 7.6 x 7 cm. The abdominal aortic aneurysm measures 13 cm long. The right common iliac artery measures 2.4 cm. Left common iliac artery measures 1.8 cm. The iliac bifurcations are normal bilaterally. Femoral bifurcations appear normal and patent bilaterally Superficial femoral arteries were patent bilaterally to the popliteal arteries. Popliteal arteries were patent and normal caliber to the tibial peroneal trunk with 3 arteries opacified to the distal tibia and the posterior tibial artery was opacified of the plantar surface of both feet. The anterior tibial artery was not patent over the foot. Pelvic Organs: Unremarkable Musculoskeletal: No aggressive focal bony lesions, acute fractures or dislocatio n. Soft tissues: Unremarkable IMPRESSION: 1. Prominent infrarenal abdominal aortic aneurysm measuring 7.6 by 7 cm and was 13 cm long. 2. Right common iliac artery measures 2.4 cm 3. Left common iliac artery measures 1.8 cm. 4. Normal patent arteries are seen bilaterally from the femoral arteries to the ankle. The peroneal artery terminates normally over the distal tibia. The an terior tibial artery is visualized to the ankle but not visualized patent distally over the foot on the right and left. Posterior tibial arteries are patent to the plantar surface of the feet bilaterally. Assessment/Plan Assessment/Plan Intractable abdominal pain Generalized weakness Hyperglycemia Leukocytosis, unspecified Infrarenal abdominal aortic aneurysm (AAA) without rupture Plan 1. Admit to telemetry unit 2. Breathing treatment 3. Pain control management 4. IV antibiotic management 5. Management of fluids and electrolytes 6. Consultation for Cardiology/surgery 7. Diagnostic test abdomen/pelvis CT 8. DVT prophylaxis-on SCDs 9. Repeat labs CBC, CMP in a.m. 10. Home medication reviewed and reconciled 11. Continue with current medical management 12. Treatment plan discussed with patient and RN. Patient verbalized understanding. Plan discussed with: Patient, Other (RN) My Orders Orders - CHERISE MCKEON DNP Procedure Category Date Status Time * Surgical Consult CONS 07/07/24 Transmitted Ceftriaxone 1gm/50ml PHA 07/08/24 In Process D5w (Rocephin) 09:00 Hydralazine Injection PHA 07/07/24 In Process (Apresoline Inject 21:00 Allergies MARILOU 07/07/24 In Process 20:49 Code Status CODE 07/07/24 Transmitted 20:49 Sodium Chloride 0.9% PHA 07/07/24 In Process 21:00 Oxygen Per Hour RT 07/07/24 Transmitted 20:49 Hydrocodone-Acet PHA 07/07/24 In Process 5/325mg Tab ([place] 21:00 Ondansetron Hcl PHA 07/07/24 In Process (Zofran) 21:00 Docusate Sodium PHA 07/07/24 In Process Capsule (Colace 21:00 Fall Risk Precautions MARILOU 07/07/[address] 20:49 Complete Blood Count LAB 07/08/24 Verified 04:00 Comprehensive LAB 07/08/24 Verified Metabolic Panel 04:00 Cardiac DIET 07/08/24 Transmitted Diet-2gna,Lofat,Lochol Breakfast Condition: Serious MARILOU 07/07/24 In Process 20:49 Acetaminophen Tablet PHA 07/07/24 In Process (Tylenol Tablet) 21:00 Morphine Sulfate PHA 07/07/24 In Process Injection 21:00 Sequential MARILOU 07/07/24 In Process Compression Device Lorazepam 2mg/Ml Inj PHA 07/07/24 In Process (Ativan Inj) 21:00 Problem List: (1) Intractable abdominal pain (2) Generalized weakness (3) Hyperglycemia (4) Leukocytosis, unspecified (5) Infrarenal abdominal aortic aneurysm (AAA) without rupture Date of Service: Jul 07, 2024 Billing Provider: CHERISE MCKEON DNP Common Visit Codes: [id number] INP/OBS CARE (HIGH) CHERISE MCKEON DNP Jul 07, 2024 22:57
[2024-07-07] MEDS ORDERED: MORPHINE SULFATE INJ 2 MG/ml SYRG IV PRN (23:00)
[2024-07-07] MEDS ORDERED: NITROGLYCERIN 0.4 MG SL TAB SL PRN (23:00)
[2024-07-07] MEDS: MORPHINE SULFATE INJ 2 MG/ml SYRG IV PRN (23:06)
--- NOTE | 2024-07-07 23:29 | DVH ---
Exam: CT CT ANGIO ABD AORTA W RUN OFF History: abd pain with know AAA 7x7.7 cm Comparison Study: None available at time of dictation. TECHNIQUE: Multidetector CT of the abdomen was performed from lung bases to pubic symphysis. Imaging was performed without IV contrast. Axial, coronal and sagittal multiplanar reformats were obtained fr om the axial data set by the technologist. Radiation Dose Information: CT Dose: CTDI volume is 57.75 mGy. Dose-length product is 1969.29 mGy*cm FINDINGS: Evaluation of solid organs is limited due to lack of intravenous contrast use. Findings: Lung Bases: No acute or significant lung base finding. Normal heart size. No pleural or pericardial effusion. Liver: The liver is normal in size. No focal lesions. Gallbladder and Biliary Tree: Unremarkable Spleen: Unremarkable Pancreas: The pancreas is grossly normal in appearance. Adrenal Glands: Unremarkable Kidneys: Kidneys are grossly normal without calculi or hydronephrosis. Bladder: Grossly unremarkable for degree of distention. Bowel: The stomach is grossly normal in appearance. Small bowel and colon are normal in caliber and d istribution. The appendix is not visualized; however, no secondary findings of acute appendicitis id entified. Ascites: Absent Lymphadenopathy: No mesenteric, retroperitoneal or periportal lymphadenopathy. Abdominal Wall and Mesentery: Unremarkable. Vasculature: The abdominal aorta is aneurysmally dilated from the infrarenal arteries to the aortic b ifurcation and measures 7.6 x 7 cm. The abdominal aortic aneurysm measures 13 cm long. The right com mon iliac artery measures 2.4 cm. Left common iliac artery measures 1.8 cm. The iliac bifurcations are normal bilaterally. Femoral bifurcations appear normal and patent bilaterally Superficial femoral arteries were patent bilaterally to the popliteal arteries. Popliteal arteries we re patent and normal caliber to the tibial peroneal trunk with 3 arteries opacified to the distal tib ia and the posterior tibial artery was opacified of the plantar surface of both feet. The anterior ti bial artery was not patent over the foot. Pelvic Organs: Unremarkable Musculoskeletal: No aggressive focal bony lesions, acute fractures or dislocation. Soft tissues: Unremarkable IMPRESSION: 1. Prominent infrarenal abdominal aortic aneurysm measuring 7.6 by 7 cm and was 13 cm long. 2. Right common iliac artery measures 2.4 cm 3. Left common iliac artery measures 1.8 cm. 4. Normal patent arteries are seen bilaterally from the femoral arteries to the ankle. The peroneal artery terminates normally over the distal tibia. The anterior tibial artery is visualized to the ank le but not visualized patent distally over the foot on the right and left. Posterior tibial arteries are patent to the plantar surface of the feet bilaterally. Radiation optimization: All CT scans at this facility use at least one of these dose optimization ya hniques: automated exposure control mA and/or kV adjustment per patient size (includes targeted exam s where dose is matched to clinical indication) or iterative reconstruction. HS:Y
[2024-07-08] VITALS (7 sets, daily range): BP systolic 64–160; BP diastolic 39–126; PULSE 59–153; RESP 18–123; TEMP 96.8–97.8; O2SAT 72–98
[2024-07-08] MEDS: NALOXONE HCL 0.4 MG/ML VIAL IV ONE ×3 (05:04→05:16)
[2024-07-08 05:13] LABS: Base Excess -8.7 mmol/L (-2.0-3.0)
[2024-07-08] MEDS: NALOXONE HCL 0.4 MG/ML VIAL ONE ×3 (05:16)
[2024-07-08] MEDS: SODIUM CHLORIDE 0.9% 500 ML IV ONE (05:18)
--- NOTE | 2024-07-08 05:24 | DVH ---
CHEST RADIOGRAPH Indication: code assist Technique: Single frontal view of the chest was obtained COMPARISON: None FINDINGS: Lines and Tubes: None Lungs: Clear Pleura: No effusion. No pneumothorax. Cardiomediastinal contours: Unremarkable Bones: Unremarkable IMPRESSION: No acute disease.
[2024-07-08] MEDS ORDERED: PHENYLEPHRINE IV 250 ML IV ONE (05:28)
[2024-07-08] MEDS ORDERED: NOREPINEPHRINE 8 MG/250ML KIT 250 ML IV ONE (05:29)
[2024-07-08 05:48] LABS: Albumin 3.9 g/dL (3.2-4.8); Alkaline Phosphatase 83 U/L (46-116); Anion Gap 10 (5-15); Aspartate Aminotransferase 18 U/L (13-40); BUN/Creatinine Ratio 9.9 (10.0-20.0); Blood Urea Nitrogen 14 mg/dL (9-23); Calcium 9.4 mg/dL (8.7-10.4); Carbon Dioxide 21 mmol/L (20-31); Chloride 103 mmol/L (98-107); Magnesium 2.2 mg/dL (1.6-2.6); Potassium 4.2 mmol/L (3.5-5.1); Total Protein 7.1 g/dL (5.7-8.2)
[2024-07-08 05:51] LABS: Alanine Aminotransferase < 9 U/L (7-40); Bilirubin, Total 1.3 mg/dL (0.2-1.0); Glucose 170 mg/dL (74-106); Sodium 134 mmol/L (136-145)
[2024-07-08] MEDS ORDERED: hydrALAZINE HCL 25 MG TAB PO SCH (06:00)
[2024-07-08] MEDS ORDERED: MIDAZOLAM DRIP 50 mg/50mL 50 ML IV SCH (06:15)
[2024-07-08] MEDS ORDERED: SODIUM CHLORIDE 0.9% 1,000 ML IV SCH (06:15)
[2024-07-08] MEDS ORDERED: PHENYLEPHRINE IV 250 ML IV SCH (06:15)
[2024-07-08] MEDS ORDERED: SODIUM BICARB 8.4% 50Meq/50ml SYR Vial IV ONE ×2 (06:15→07:09)
[2024-07-08] MEDS ORDERED: VASOPRESSIN 20 UNITS in SODIUM CHL 0.9% 99 ML IV SCH ×2 (06:15→06:30)
[2024-07-08] MEDS ORDERED: fentaNYL Drip 2500mCg/250mlNS 250 ML IV SCH (06:15)
[2024-07-08] MEDS ORDERED: NOREPINEPHRINE 8 MG/250ML KIT 250 ML IV SCH (06:15)
[2024-07-08] MEDS ORDERED: ETOMIDATE (2MG/ML) 20ML VIAL IV ONE (06:18)
[2024-07-08] MEDS ORDERED: SUCCINYLCHOLINE CHLORIDE 20 MG/ML 10ML VIAL IV ONE (06:19)
[2024-07-08] MEDS ORDERED: MIDAZOLAM DRIP 50 mg/50mL 0 ML IV ONE (06:26)
[2024-07-08] MEDS ORDERED: fentaNYL Drip 2500mCg/250mlNS 0 ML IV ONE (06:27)
--- NOTE | 2024-07-08 06:54 | DVH ---
CHEST RADIOGRAPH Indication: RESPIRATORY ARRREST Technique: Single frontal view of the chest was obtained Comparison: XY CHEST XRAY 1 VIEW on DOS: 07/08/24 FINDINGS: Lines and Tubes: The endotracheal tube terminates 5.0 cm above the sima. Lungs: No focal consolidation. Pleura: No effusion. No pneumothorax. Cardiomediastinal contours: Unremarkable Bones: No acute osseous abnormality. IMPRESSION: 1. No acute cardiopulmonary disease.
[2024-07-08] MEDS ORDERED: EPINEPHrine HCL 250 ML IV ONE (06:59)
[2024-07-08 07:00] LABS: Basophils # (auto) 0 10 ^3/uL (0-0.2); Eosinophils # (auto) 0 10 ^3/uL (0-0.8); Hemoglobin 8.4 g/dL (13.5-17.5); Nucleated Red Blood Cells % 0.1 %; Red Cell Distribution Width 15.8 % (11.8-14.3)
[2024-07-08] MEDS ORDERED: EPINEPHrine HCL 250 ML IV SCH (07:00)
[2024-07-08] MEDS ORDERED: DOPamine 1600MCG/ML D5W 250 ML IV SCH (07:00)
[2024-07-08 07:02] LABS: Basophils % (auto) 0.3 % (0.0-2.0); Eosinophils % (auto) 0.3 % (0.0-7.0); Hematocrit 27.7 % (41.0-53.0); Lymphocytes # (auto) 1.7 10 ^3/uL (0.4-5.4); Lymphocytes % (auto) 14.6 % (10.0-50.0); Mean Corpuscular Hemoglobin 30.7 pg (28.0-32.0); Mean Corpuscular Hgb Conc. 30.2 g/dL (32.0-36.0); Mean Corpuscular Volume 101.7 fL (80.0-100.0); Monocytes # (auto) 0.8 10 ^3/uL (0-1.3); Monocytes % (auto) 6.6 % (0.0-12.0); Neutrophils % (auto) 78.2 % (37.0-80.0); Platelet Count (auto) 131 10^3/uL (140-450); Red Blood Cells 2.73 10^6/uL (4.5-5.90); White Blood Cell 11.5 10^3/uL (4.4-10.8)
[2024-07-08] MEDS ORDERED: MAGNESIUM SULFATE 1GM/100ML 0 ML IV ONE (07:32)
--- NOTE | 2024-07-08 07:48 | ECG ---
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
--- NOTE | 2024-07-08 07:49 | RESUS ---
CODE ASSIST ASSESSSMENT Initial Information Code Assist Date: Jul 08, 2024 Code Assist Time: 04:51 Location of Arrest: [facility] Provider Name THUAN Stover ; MD Brad - Resident Time Notified: 04:51 Time PMD returned call: 04:51 Crash Cart Opened and Supplies: Yes Situation Staff concerned/worried, speci: Non-responsive Situation comment: Per primary RN, pt became unresponsive with urinating on self. Pt not responsible to sternal rub. CODE ASSIST called. Background Background: Pt admitted 07/07/24 to telemetry with intractable abd pain. Per primary RN, pt A&Ox4 prior to event and talking and communicating without issue. Pt noted to have AAA upon admission and awaiting cardiac clearance for surgery. Assessment Blood Pressure Systolic: 137 Blood Pressure Diastolic: 63 O2 Sat by Pulse Oximetry: 95 Bedside Blood Glucose: 182 Assessment comment: Multiple attempts to obtain BP without successful. Pt has elevated HR in the 140s-150s. Pt is diaphoretic and unsucessful with multiple attempts to place IV. Pinpoint pupils. Recommendations/Interventions Medications and Responses #1: Medication Time: 05:04 ADULT Medications Given: Narcan 0.4 mg IVP MRx1 Route of Administration: IV Medications and Responses #2: Medication Time: 05:09 ADULT Medications Given: Narcan 0.4 mg IVP MRx1 Route of Administration: IV Medications and Responses #3: ADULT Medications Given: Narcan 0.4 mg IVP MRx1 Route of Administration: IV Procedures: Accu check, ABG, CXR Portable, CMP, CBC, EKG, Cardiac Monitoring Other Interventions @ 0504 - EKG : Sinus tachy 156 @ 0517 - 22g IV to RWR initiated by Jeny Tsai RN Outcome Outcome: Transfer to ICU Follow up Report Follow up Report Pt was transferred to ICU and intubated at approximately 0600 Team Members Team Members THUAN Stover - Hospitalist; MD Brad - Resident; Sharon Carmen RN - ICU Charge; Tracey Castellanos RN - Soloist Dancer; Mani Vidal RN - MST Charge; Mariangel Carmen RN - MST Charge; Jeny Tsai RN; Johanna Benitez RN; Nash Valenzuela RN - Primary RN; Ry Kimble; KEISHA FooteN; Jesse Vallejo, Tracey Piedra Jul 08, 2024 07:48
--- NOTE | 2024-07-08 08:09 | RESUS ---
KELLY PAK ASSESSSMENT History of Events History of Events: Pt admitted on 07/07/24 to [facility] for abdominal pain; pt code assist on 07/08/24 with transfer to ICU. Pt was subsquently intubated upon arrival. Per foam charger, pt heart rate decreasing. Pt given atropine when observed to be pulseless. KELLY PAK called. Initial Information Date: Jul 08, 2024 Time: 07:05 Location of Arrest: ICU ([place]) Arrest Witnessed: Yes CPR started initial time: 07:05 CPR started by whom: Hospital Staff Pre-Hospital Care: Pre-Code Care (inpatient) Type of arrest: Cardiac, Respiratory, Adult, Witnessed Spontaneous Respirations: No Pulse Present: No Monitoring: ECG, Pulse Oximetry, Telemetry Crash Cart Opened and Supplies: Yes Airway Ventilation Breathing at Onset: Assisted Oxygen Delivery Method: Mechanical Ventilator Time of first Assisted Ventila: 07:05 Artificial Ventilation: Bag/Endo tube Intubation Size: 8.0 cuffed Intubated orally: Yes Intubated Nasaly: No Tube secured at: 24 (cm @ lip) Comments: Pt intubated prior to code Circulation Circulation #1: Time: 07:05 Pulse Rate (adult): 0 Blood Pressure Systolic: 0 Blood Pressure Diastolic: 0 Circulation Comment: Asystole Circulation #2: Time: 07:07 Pulse Rate (adult): 0 Blood Pressure Systolic: 0 Blood Pressure Diastolic: 0 Circulation Comment: PEA Circulation #3: Time: 07:08 Pulse Rate (adult): 0 Blood Pressure Systolic: 0 Blood Pressure Diastolic: 0 Circulation Comment: PEA Circulation #4: Time: 07:10 Pulse Rate (adult): 0 Blood Pressure Systolic: 0 Blood Pressure Diastolic: 0 Circulation Comment: PEA Circulation #5: Time: 07:12 Pulse Rate (adult): 0 Blood Pressure Systolic: 0 Blood Pressure Diastolic: 0 Circulation Comment: PEA Circulation #6: Time: 07:14 Pulse Rate (adult): 0 Blood Pressure Systolic: 0 Blood Pressure Diastolic: 0 Circulation Comment: PEA Circulation #7: Time: 07:16 Circulation Comment: VFIB Circulation #8: Time: 07:18 Pulse Rate (adult): 83 Circulation Comment: ROSC Defibrillation Defbrillation : Time Defibrillator Applied: 07:16 EKG Rhythm: V-Fibrillation (181) Compressions: Manual Time Defibrillator Shocked Pt.: 07:16 Defib. Joules: 120 Pulse Present: No Procedure - IV Procedure - IV : Comment 20g IV to bilateral feet/ankles - initiated prior to code 18g IV to R wrist - initiated prior to code 22g IV to R hand - initiated prior to code Medications & Response Medications and Responses #1: Medication Time: 07:06 ADULT Medications Given ADULT: Sodium Bacarbinate 50 meq Route of Administration: IV Heart Rate: 0 Blood Pressure Systolic: 0 Blood Pressure Diastolic: 0 Respiratory Rate: 0 Medications and Responses #2: Medication Time: 07:07 ADULT Medications Given ADULT: Epinephrine 1 mg, Calcium Chloride 10 mL Route of Administration: IV Medications and Responses #3: Medication Time: 07:10 ADULT Medications Given ADULT: Epinephrine 1 mg, Sodium Bacarbinate 50 meq Route of Administration: IV Medications and Responses #4: Medication Time: 07:13 ADULT Medications Given ADULT: Epinephrine 1 mg Route of Administration: IV Medications and Responses #5: Medication Time: 07:17 ADULT Medications Given ADULT: Epinephrine 1 mg Route of Administration: IV Medications and Responses #6: Medication Time: 07:18 ADULT Medications Given ADULT: Amiodarone 300 mg Route of Administration: IV Procedure - Taylor Catheter Urinary Catheter Type/Location: Uretheral (Taylor) Urine Appearance: Clear Urine Color: Yellow, Straw Taylor Catheter Secured: Yes Comment: Taylor placed prior to code Nurses Notes [place] Coma Scale Eye Opening: None (1) [place] Coma Scale Verbal: None (1) [place] Coma Scale Motor: None (1) Glascow Total: 3 Pupil Reaction: Non Reactive, Unequal Time Code Ended Time Code Ended: 07:18 Post Arrest Status: Ventilated Outcome of code: Successful Code Team Present: MD Brad - Resident; MD Alysha - Resident; Sharon Carmen RN - ICU Charge; Tracey Castellanos RN - Windsurfing Instructor; Felisa Benitez RN; Lindsay RT; Raimundo Gutierrez, RN; Jeny Tsai RN; Javier Gutierrez RN; MD Zully - Resident; Tere Chen CCT; Tere Payton CCT; Date of Service: Jul 08, 2024 Billing Provider: JOCELYNE SUTTON MD Common Visit Codes: PROCEDURE ONLY Procedure Codes: [id number] CODE Tracey Goldstein Jul 08, 2024 08:09 Romelia Crockett Jul 08, 2024 19:23 JOCELYNE SUTTON MD Jul 08, 2024 20:57
[2024-07-08] MEDS ORDERED: cefTRIAXone 1GM/50ML D5W 50 ML IV SCH (09:00)
--- NOTE | 2024-07-08 09:23 | DVHDS2 ---
Discharge Summary Date of Admission Jul 07, 2024 at 22:55 Date of Discharge: Jul 08, 2024 Labs/Diagnostic Data: Laboratory Results Test 07/08/24 06:50 07/08/24 06:05 07/08/24 05:04 07/08/24 05:02 White Blood Count 11.5 10^3/uL (4.4-10.8) Red Blood Count 2.73 10^6/uL (4.5-5.90) Hemoglobin 8.4 g/dL (13.5-17.5) Hematocrit 27.7 % (41.0-53.0) Mean Corpuscular Volume 101.7 fL (80.0-100.0) Mean Corpuscular Hemoglobin 30.7 pg (28.0-32.0) Mean Corpuscular Hemoglobin Concent 30.2 g/dL (32.0-36.0) Red Cell Distribution Width 15.8 % (11.8-14.3) Platelet Count 131 10^3/uL (140-450) Mean Platelet Volume 9.4 fL (6.9-10.8) Neutrophils (%) (Auto) 78.2 % (37.0-80.0) Lymphocytes (%) (Auto) 14.6 % (10.0-50.0) Monocytes (%) (Auto) 6.6 % (0.0-12.0) Eosinophils (%) (Auto) 0.3 % (0.0-7.0) Basophils (%) (Auto) 0.3 % (0.0-2.0) Neutrophils # (Auto) 9.0 10 ^3/uL (1.6-8.6) Lymphocytes # (Auto) 1.7 10 ^3/uL (0.4-5.4) Monocytes # (Auto) 0.8 10 ^3/uL (0-1.3) Eosinophils # (Auto) 0 10 ^3/uL (0-0.8) Basophils # (Auto) 0 10 ^3/uL (0-0.2) Nucleated Red Blood Cells 0.1 % Ammonia 70 umol/L (11-32) B-Type Natriuretic Peptide 1889.03 pg/mL (0-100) Blood Gas Specimen Type Arterial Blood Gas Sample Site Right radial Blood Gas Patient Temperature 37.0 Arterial Blood Date Drawn [id number] Arterial Blood pH < 6.681 (7.350-7.450) Arterial Blood Partial Pressure CO2 55.2 mmHg (35.0-48.0) Arterial Blood Partial Pressure O2 372.0 mmHg (83.0-108.0) Arterial Blood Oxygen Saturation 99.2 % (94.0-98.0) Arterial Blood Oxyhemoglobin 98.6 % (94.0-98.0) Arterial Blood Carboxyhemoglobin 0.3 % (0.5-1.5) Arterial Blood Methemoglobin 0.3 % (0.0-1.5) Yoel Test Yes Blood Gas Total Hemoglobin 11.90 g/dL (13.5-17.5) Blood Gas Modality Mask - simple FiO2 % 60.0 Blood Gas Critical Value Read Back yes Blood Gas Notified Whom Aminta shannon md Blood Gas Notified Time [id number] Blood Gas Notified By mikhail schmidt rrt Sodium Level 134 mmol/L (136-145) Potassium Level 4.2 mmol/L (3.5-5.1) Chloride Level 103 mmol/L (98-107) Carbon Dioxide Level 21 mmol/L (20-31) Anion Gap 10 (5-15) Blood Urea Nitrogen 14 mg/dL (9-23) Creatinine 1.41 mg/dL (0.700-1.30) Glomerular Filtration Rate Calc 53 mL/min (>90) BUN/Creatinine Ratio 9.9 (10.0-20.0) Serum Glucose 170 mg/dL (74-106) Calcium Level 9.4 mg/dL (8.7-10.4) Magnesium Level 2.2 mg/dL (1.6-2.6) Total Bilirubin 1.3 mg/dL (0.2-1.0) Aspartate Amino Transferase (AST) 18 U/L (13-40) Alanine Aminotransferase (ALT) < 9 U/L (7-40) Alkaline Phosphatase 83 U/L (46-116) Total Protein 7.1 g/dL (5.7-8.2) Albumin 3.9 g/dL (3.2-4.8) Arterial Blood HCO3 12.1 mmol/L (21.0-28.0) Arterial Blood Base Excess -8.7 mmol/L (-2.0-3.0) Test 07/08/24 04:52 07/07/24 15:00 07/07/24 12:19 POC Glucose 182 mg/dl (70-106) Urine Color Yellow (Yellow) Urine Clarity Clear (Clear) Urine pH 6.0 (5.0-9.0) Urine Specific [place] 1.028 (1.001-1.035) Urine Protein 1+ (Negative) Urine Ketones 2+ (Negative) Urine Blood 2+ /uL (Negative) Urine Nitrite Negative (Negative) Urine Bilirubin Negative (Negative) Urine Urobilinogen 4 mg/dL (Negative) Urine Leukocyte Esterase Negative /uL (Negative) Urine RBC 11 /hpf (0 - 3) Urine WBC 1 /hpf (0 - 3) Urine Squamous Epithelial Cells Few /hpf (<5) Urine Bacteria None seen /hpf (None Seen) Urine Mucus Few (None Seen) Urine Glucose 2+ mg/dL (Normal) Prothrombin Time 10.6 sec (9.3-11.8) Prothrombin Time INR 1.00 (0.9-1.15) Activated Partial Thromboplast Time 28.9 SEC (24.5-34.5) Hemoglobin A1c 5.5 % A1C (<5.7) Other Laboratory Tests 07/08/24 06:50 07/08/24 05:04 Brief Hx & Hospital Course: The patient is a 74-year-old male who denies past medical history presented to [facility] ED with complaint of acute abdominal pain. Patient reports he has been experiencing abdominal pain a proximally four days with constipation times 10 days associated nausea, vomiting, getting worse today that prompted this visit. Patient was seen and evaluated in the ED laboratory data shows WBC 12.4, platelets 270, sodium 134, potassium 3.9, BUN 13, creatinine 1.11, GFR 71, glucose 165, blood pressure 178/ 102 trending down to 149/90, heart rate 87, temperature 98.6 F, O2 saturation 96% room air. Abdomen/pelvis CT revealing marked aneurysmal dilatation of the infrarenal abdominal aorta measuring 7.0 x 7.7 cm maximum diameter; CT angio aorta revealing prominent infrarenal abdominal aortic aneurysm measuring 7.6 by 7 cm and was 13 cm long, right common iliac artery measures 2.4 cm, left common iliac artery measures 1.8 cm. Patient was given IV morphine sulfate 4 mg x 1, please see medication orders section in the computer. On my assessment, patient denies chest pain, no headache, no dizziness, no diaphoresis, no shortness of breath, no diarrhea, no nausea, no vomiting, no fever, no chills. Patient was admitted for further evaluation and medical management. Patient had sudden cardiac arrest and code blue was called. Patient was intubated and moved to the ICU where the patient . Condition at Discharge: Undetermined Final Diagnosis/Problems List Infrarenal abdominal aortic aneurysm (AAA) without rupture Acute Resp Failure s/p Cardiac Arrest Discharge Disposition: at Hospital ASSESSMENT ASSESSMENT Assessment Date of Service: Jul 08, 2024 Billing Provider: JOCELYNE SUTTON MD Common Visit Codes: NOT BILLABLE JOCELYNE SUTTON MD Jul 08, 2024 09:23
--- NOTE | 2024-07-08 11:09 | ECG ---
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
--- NOTE | 2024-07-08 11:15 | RESUS ---
CODE BLUE ASSESSSMENT History of Events History of Events: Code Blue # 2 for this patient this morning, patient went into PEA Code Blue called and CPR started immediately. See please see previous code sheet for intubation data Initial Information Date: Jul 08, 2024 Time: 07:30 Location of Arrest: ICU ([place]) Arrest Witnessed: Yes CPR started initial time: 07:30 CPR started by whom: Hospital Staff Last seen well: 728 Type of arrest: Cardiac, Witnessed Spontaneous Respirations: No Pulse Present: No Crash Cart Opened and Supplies: Yes Airway Ventilation Breathing at Onset: Assisted Oxygen Delivery Method: Ambu-Bag Comments: Alysha Resident, Jose Resident, On[place] resident, Apolinar Gonzalez, SAM Oden, RN Sahron Dunham, RN Jeny Olsen, SAM Dubois, SAM Crockett RN [facility] Defibrillation Defbrillation #1: Time Defibrillator Applied: 07:35 EKG Rhythm: V-Fibrillation Compressions: Manual Time Defibrillator Shocked Pt.: 07:35 Pulse Present: No EKG Rhythm: PEA Defbrillation #2: Time Defibrillator Applied: 07:38 EKG Rhythm: V-Fibrillation Compressions: Manual Time Defibrillator Shocked Pt.: 07:38 Pulse Present: No EKG Rhythm: PEA Medications & Response Medications and Responses #1: Medication Time: 07:31 ADULT Medications Given ADULT: Epinephrine 1 mg Route of Administration: IV EKG Rhythm: PEA EKG Rhythm: PEA Medications and Responses #2: Medication Time: 07:33 ADULT Medications Given ADULT: Sodium Bacarbinate 50 meq Route of Administration: IV EKG Rhythm: PEA Medications and Responses #3: Medication Time: 07:33 ADULT Medications Given ADULT: Magnesium Sulfate 1 gm Route of Administration: IV EKG Rhythm: PEA EKG Rhythm: PEA Medications and Responses #4: Medication Time: 07:36 ADULT Medications Given ADULT: Epinephrine 1 mg Route of Administration: IV EKG Rhythm: PEA EKG Rhythm: PEA Procedure - Taylor Catheter Comment: See previous records Nurses Notes [place] Coma Scale Eye Opening: None (1) Afshan Coma Scale Verbal: None (1) [place] Coma Scale Motor: None (1) Glascow Total: 3 Time Code Ended Time Code Ended: 07:41 Post Arrest Status: Outcome of code: Unsuccessful Time patient pronounced: 07:31 Attending called: Yes Code Team Present: SAM Coleman Deanna Jul 08, 2024 11:15
--- NOTE | 2024-07-08 13:23 | ECG ---
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
== END 2024-07-08 07:41 | DRG 197 ==
LOC: EDBD 11:56 → ER 12:03 → TELE 22:55 → ICU WEST 22:56 → TELE-WESTW 23:54 → ICU WEST 07-08 05:45
PROVIDERS: ADMIT Nurse Practitioner Family; ATTEND Nurse Practitioner Family
PROC: 5A12012 Performance of Cardiac Output, Single, Manual (ICD-10-PCS; principal; 2024-07-08)
PROC: 5A1935Z Respiratory Ventilation, Less than 24 Consecutive Hours (ICD-10-PCS; 2024-07-08)
PROC: 0BH17EZ Insertion of Endotracheal Airway into Trachea, Via Natural or Artificial Opening (ICD-10-PCS; 2024-07-08)
PROC: 5A2204Z Restoration of Cardiac Rhythm, Single (ICD-10-PCS; 2024-07-08)
DX: I71.43 Infrarenal abdominal aortic aneurysm, without rupture (principal); J96.00 Acute respiratory failure, unspecified whether with hypoxia or hypercapnia; I46.9 Cardiac arrest, cause unspecified; D72.829 Elevated white blood cell count, unspecified; F17.210 Nicotine dependence, cigarettes, uncomplicated; R73.9 Hyperglycemia, unspecified
CPT/HCPCS: 31500; 36415; 36600; 71045; 74176; 75635; 80053; 81001; 82140; 82805; 82962; 83036; 83735; 83880; 85025; 85610; 85730; 86850; 86900; 86901; 87081; 92950; 93005; 94002; 99291; G0378; J0171; J0330; J2405